=== PATIENT | male | born 1975 | race Native Hawaiian/Other Pacific Islander ===

== ENCOUNTER 2017-12-14 10:25 | Emergency (ER) | payer OTHER ==
[~2017-12-14] VITALS: Ht 182.9 cm; Wt 158.8 kg
--- NOTE | ~2017-12-14 | EKG ---
[address] [address] ELECTROCARDIOGRAM REPORT Name: VIOLETAKAPIL Joseph Room #: [facility]#: [id number] Admission: 12/14/17 Attend Phys: Discharge: 12/14/17 Date of : 73 Report #: [id number] THIS REPORT FOR: //name// [facility] ED Test Date: 2017-12-14 Test Time: 10:41:27 Pat Name: KAPIL MCDANIEL Department: Room: Gender: M Cassandra Architect: ALVARO : 1975 Requested By: Orestes Gross Order Number: [id number] MD: Lázaro Mcgovern Measurements Intervals [place] Rate: 64 P: 37 AR: 177 QRS: -40 QRSD: 108 T: 12 QT: 425 QTc: 439 Interpretive Statements Sinus arrhythmia Left axis deviation ST elev, probable normal early repol pattern Baseline wander in lead(s) V4,V6 Compared to ECG 11/02/2010 18:52:36 No significant change was found Electronically Signed On 12-14-2017 16:49:10 CDT by Lázaro Mcgovern [email or web address] <ELECTRONICALLY SIGNED> By: Lázaro Mcgovern MD, [facility] 12/14/17 [id number] Lázaro Mcgovern MD, [facility] /EPI
[~2017-12-14 10:25] MED LIST: GENTAK 3 MG/M3 MG/M1 OP; NORCO 5-325 TA1 EACH PO
[2017-12-14 10:58] LABS: ABSOLUTE NEUTROPHILS 9.1 thou/uL (1.4-8.2); BASOPHILS 0.9 % (0.0-2.0); EOSINOPHILS 0.5 % (0.0-3.0); HEMATOCRIT 46.1 % (42.0-52.0); HEMOGLOBIN 15.5 gm/dL (14.0-18.0); LYMPHOCYTES 13.1 % (24.0-44.0); MCH 30.2 pg (26.0-34.0); MCHC 33.7 g/dL (28.0-37.0); MCV 89.5 fL (80.0-100.0); MONOCYTES 3.8 % (1.0-8.0); PLATELET COUNT 252 thou/uL (150-400); POLYS 81.7 % (36.0-66.0); RBC 5.15 mil/uL (4.50-6.00); RDW 13.9 % (10.5-14.5); WBC 11.1 thou/uL (4.0-11.0)
[2017-12-14 11:17] LABS: ANION GAP 9 mmol/L (7-16); BUN 12 mg/dL (7-18); CALCIUM 9.3 mg/dL (8.5-10.1); CHLORIDE 105 mmol/L (98-107); CO2 27 mmol/L (21-32); CREATININE 1.3 mg/dL (0.7-1.3); GLUCOSE 141 mg/dL (74-106); POTASSIUM 3.7 mmol/L (3.5-5.1); SODIUM 141 mmol/L (136-145)
[2017-12-14 11:26] LABS: ALBUMIN 3.7 g/dL (3.4-5.0); LIPASE 138 U/L (73-393); SGOT 26 U/L (15-37); SGPT 48 U/L (30-65); TOTAL BILIRUBIN 0.4 mg/dL (<0.1-1.0); TOTAL PROTEIN 7.4 g/dL (6.4-8.2); TROPONIN-I < 0.04 ng/mL (<0.06)
[2017-12-14 11:53] LABS: URINE BILIRUBIN NEGATIVE (Negative); URINE BLOOD NEGATIVE (Negative); URINE CLARITY CLEAR; URINE COLOR YELLOW; URINE GLUCOSE-RANDOM* NEGATIVE (Negative); URINE KETONES 1+ (Negative); URINE LEUKOCYTES-REFLEX NEGATIVE (Negative); URINE NITRITE-REFLEX NEGATIVE (Negative); URINE PROTEIN (DIPSTICK) NEGATIVE (Negative); URINE UROBILINOGEN 0.2 E.U./dl (0.2-1.0)
[2017-12-14] MEDS ORDERED: SENNA-DOCUSATE1 EACH PO (14:19)
[2017-12-14] MEDS ORDERED: ZOFRAN ODT4 MG PO (14:19)
[2017-12-14] MEDS ORDERED: PRILOSEC 20 MG20 MG PO (14:19)
[2017-12-14] MEDS ORDERED: NORCO 7.5-3251 EACH PO (14:19)
[2017-12-14 15:05] VITALS: BP 136/76
== END 2017-12-14 15:06 | disposition home or self-care (01) ==
LOC: ER 10:25
PROVIDERS: Emergency Medicine
DX: R10.13 Epigastric pain (principal)

== ENCOUNTER → 2017-12-19 | Outpatient (CLI) | payer OTHER ==
[~2017-12-19] MED LIST changes: +NORCO 7.5-3251 EACH PO; +PRILOSEC 20 MG20 MG PO; +SENNA-DOCUSATE1 EACH PO; +ZOFRAN ODT4 MG PO
== END ==
LOC: ULTRA 15:54
DX: K76.0 Fatty (change of) liver, not elsewhere classified (principal)